=== PATIENT | female | born 1980 | race Caucasian/White ===

== ENCOUNTER 2017-07-26 10:04 | Outpatient (CLI) | payer OTHER ==
[~2017-07-26 10:04] MED LIST: ACIDOPHILUS1 EAC3 PO; NABUMETONE500 MG PO; PERCOCET 5/3251 TAB PO
== END 2017-07-26 10:16 | disposition home or self-care (01) ==
LOC: SONOGRAMA 10:04
DX: R10.13 Epigastric pain (principal)

== ENCOUNTER 2019-02-13 15:30 | Emergency (ER) | payer OTHER ==
[~2019-02-13] VITALS: Ht 157.5 cm; Wt 49.0 kg
[2019-02-13] MEDS ORDERED: ATIVAN0.5 M1 (17:16)
== END 2019-02-13 22:47 | disposition home or self-care (01) ==
LOC: ER 15:30
DX: R10.13 Epigastric pain (principal); T76.21XA Adult sexual abuse, suspected, initial encounter

== ENCOUNTER 2019-04-08 21:27 | Emergency (ER) | payer OTHER ==
[~2019-04-08] VITALS: Ht 157.5 cm; Wt 49.9 kg
[~2019-04-08 21:27] MED LIST changes: +ATIVAN0.5 M1
[2019-04-08] MEDS ORDERED: PAXIL CR25 MG (22:06)
[2019-04-08] MEDS ORDERED: KETO10TA2 PO (23:35)
== END 2019-04-09 00:08 | disposition home or self-care (01) ==
LOC: ER 21:27
DX: S50.02XA Contusion of left elbow, initial encounter (principal); S70.02XA Contusion of left hip, initial encounter; S40.012A Contusion of left shoulder, initial encounter; W18.39XA Other fall on same level, initial encounter; Y93.89 Activity, other specified; Y92.89 Other specified places as the place of occurrence of the external cause; Y99.8 Other external cause status

== ENCOUNTER → 2019-05-11 | Outpatient (CLI) | payer OTHER ==
[~2019-05-11] MED LIST changes: +KETO10TA2 PO; +PAXIL CR25 MG
== END | disposition home or self-care (01) ==
LOC: RAD 14:35
DX: M25.512 Pain in left shoulder (principal)

== ENCOUNTER 2019-10-08 13:57 | Outpatient (CLI) | payer OTHER | END 2019-10-08 14:10 | disposition home or self-care (01) | LOC: SONOGRAMA 13:57 | DX: M75.112 Incomplete rotator cuff tear or rupture of left shoulder, not specified as traumatic (principal); M75.42 Impingement syndrome of left shoulder ==

== ENCOUNTER 2021-12-20 17:20 | Emergency (ER) | payer OTHER ==
[~2021-12-20] VITALS: Ht 157.5 cm; Wt 52.2 kg
== END 2021-12-20 22:34 | disposition home or self-care (01) ==
LOC: ER
DX: N30.90 Cystitis, unspecified without hematuria (principal); K59.00 Constipation, unspecified; Z88.0 Allergy status to penicillin; Z88.8 Allergy status to other drugs, medicaments and biological substances

== ENCOUNTER 2022-06-27 18:07 | Emergency (ER) | payer OTHER ==
[~2022-06-27] VITALS: Ht 157.5 cm; Wt 53.1 kg
== END 2022-06-27 23:26 | disposition home or self-care (01) ==
LOC: ER 18:07
DX: S20.212A Contusion of left front wall of thorax, initial encounter (principal); W10.1XXA Fall (on)(from) sidewalk curb, initial encounter; Y93.01 Activity, walking, marching and hiking; Y92.480 Sidewalk as the place of occurrence of the external cause

== ENCOUNTER 2023-04-10 16:03 | Outpatient (CLI) | payer OTHER | END 2023-04-10 16:12 | disposition home or self-care (01) | LOC: RAD 16:03 | DX: M54.89 Other dorsalgia (principal) ==